=== PATIENT | male | born 1970 | race Caucasian/White ===

== ENCOUNTER 2019-01-16 15:42 | Emergency (ER) | payer OTHER ==
[~2019-01-16] VITALS: Ht 170.2 cm; Wt 99.3 kg
[2019-01-16 15:50] VITALS: BP 145/76
--- NOTE | 2019-01-16 16:00 | NUR ---
patient came in to the ER c/o R foot pain and swelling since last night. denies trauma. On room air, breathing evenly and unlabored. Kept comfortable, will continue to monitor accordingly.
--- NOTE | 2019-01-16 19:36 | NUR ---
Patient discharged to home in stable condition. Written and verbal after care instructions given. Patient verbalizes understanding of instruction.
== END 2019-01-16 19:36 | disposition home or self-care (01) ==
LOC: ER 15:45
DX: L03.116 Cellulitis of left lower limb (principal); L03.115 Cellulitis of right lower limb
CPT/HCPCS: 73610-TC; 73630-TC; 93971-TC

== ENCOUNTER 2021-09-20 04:56 | Emergency (ER) | payer OTHER ==
--- NOTE | 2021-09-20 05:12 | NUR ---
CALLED TO TRIAGE. NO RESPONSE
--- NOTE | 2021-09-20 05:31 | NUR ---
CALLED TO TRIAGE. NO RESPONSE
--- NOTE | 2021-09-20 05:48 | NUR ---
CALLED TO TRIAGE. NO RESPONSE
== END 2021-09-20 06:44 | disposition left against medical advice (07) ==
LOC: ER 05:11
DX: Z53.21 Procedure and treatment not carried out due to patient leaving prior to being seen by health care provider (principal)